=== PATIENT | male | born 1970 | race Caucasian/White ===

== ENCOUNTER 2024-11-01 05:54 | Inpatient (IN) | payer OTHER ==
[~2024-11-01] VITALS: Ht 190.5 cm; Wt 113.4 kg
[2024-11-01] MEDS: ONDANSETRON HCL INJ 2MG/ML 2ML 2 MG/ML VIAL IV ONE (06:34)
[2024-11-01] MEDS: LACTATED RINGER'S 1,000 ML INJ ONE (06:35)
[2024-11-01] MEDS: FAMOTIDINE 20 MG/2 ML VIAL IV ONE (06:37)
[2024-11-01] MEDS: KETOROLAC TROMETHAMINE 30 MG/ML VIAL IV STA (06:37)
[2024-11-01] MEDS: SODIUM CHLORIDE 0.9% 1000ML 1,000 ML IV STA ×2 (07:43→08:29)
[2024-11-01] MEDS: NICOTINE 14 MG/EA PATCH TOP SCH (08:15)
[2024-11-01] MEDS: CEFTRIAXONE 1 GM VIAL IV ONE (08:29)
[2024-11-01] MEDS: SODIUM CHLORIDE 0.9% 500ML 500 ML IV STA (08:30)
[2024-11-01] MEDS ORDERED: CEFTRIAXONE 1 GM VIAL ONE (08:35)
[2024-11-01] MEDS: KETOROLAC TROMETHAMINE 30 MG/ML VIAL IV PRN (12:42)
[2024-11-01] MEDS: ACETAMINOPHEN 325 MG TAB PO PRN (12:42)
[2024-11-01 16:34] VITALS: PULSE 90; RESP 18; TEMP 98.4
[2024-11-01] MEDS: FAMOTIDINE 20 MG TAB PO SCH (16:47)
[2024-11-01] MEDS: ONDANSETRON HCL INJ 2MG/ML 2ML 2 MG/ML VIAL IV PRN (16:47)
[2024-11-01] MEDS: Morphine 4mg INJECTION 4 MG/ML INJ IV PRN (16:48)
[2024-11-01] MEDS ORDERED: CLARITIN10 MG PO (18:01)
[2024-11-01] MEDS ORDERED: B12 ACTIVE1000 MCG PO (18:01)
[2024-11-01] MEDS ORDERED: BENADRYL25 M1 PO (18:01)
[2024-11-01 18:03] VITALS: BP_SYST 134; BP_SYST 144; BP_DIAS 84; BP_DIAS 87; PULSE 92; RESP 18; TEMP 98.2; O2SAT 100; O2SAT 95
[2024-11-01 20:00] VITALS: BP 126/90; PULSE 88; RESP 16; TEMP 97.7; O2SAT 100
[2024-11-01] MEDS ORDERED: ZOLPIDEM TARTRATE 10 MG TAB PO PRN (21:00)
[2024-11-02] VITALS (8 sets, daily range): BP systolic 117–135; BP diastolic 67–99; PULSE 90–101; RESP 18; TEMP 97.6–99; O2SAT 98–100
[2024-11-02 06:30] LABS: BASOPHILS # (AUTO) 0.1 (0.0-0.1); BASOPHILS % 0.9 % (0.0-1.0); EOSINOPHILS # (AUTO) 1.5 (0.0-0.4); EOSINOPHILS % 11.6 % (0.0-6.0); HEMATOCRIT 42.5 % (38.2-49.6); LYMPHOCYTES # (AUTO) 2.4 (1.0-3.2); LYMPHOCYTES % 18.6 % (18.0-39.1); MEAN CORPUSCULAR HEMOGLOBIN 33.3 pg (28-32); MEAN CORPUSCULAR HGB CONC 32.9 g/dL (31-35); MONOCYTES # (AUTO) 0.7 (0.2-0.8); MONOCYTES % 5.7 % (4.4-11.3); NEUTROPHILS # (AUTO) 8.1 (2.1-6.9); NEUTROPHILS % 62.6 % (38.7-80.0); PLATELET COUNT 197 x10e3/uL (140-360); RED BLOOD COUNT 4.21 x10e6/uL (4.3-5.7); RED CELL DISTRIBUTION WIDTH 13.9 % (11.7-14.4)
[2024-11-02 06:59] LABS: ANION GAP 12.3 mmol/L (8-16); CALCIUM 8.4 mg/dL (8.4-10.2); CREATININE, SERUM 1.24 mg/dL (0.72-1.25); POTASSIUM 4.3 mmol/L (3.5-5.1)
[2024-11-02] MEDS ORDERED: CEFTRIAXONE 1 GM VIAL IV SCH (09:00)
[2024-11-02] MEDS: CEFTRIAXONE 2 GM in SODIUM CHLORIDE 0.9% 100 ML IV SCH (09:21)
[2024-11-02] MEDS: LACTULOSE SYRUP 20 GM/30 ML UDC PO ONE (14:38)
[2024-11-02] MEDS: BISACODYL 5 MG TAB EC PO SCH (17:27)
[2024-11-03 01:46] VITALS: BP 126/83; PULSE 103; RESP 18; TEMP 97.9; O2SAT 100
[2024-11-03 05:14] VITALS: BP 128/80; PULSE 98; RESP 19; TEMP 97.7; O2SAT 98
[2024-11-03 06:04] LABS: BASOPHILS # (AUTO) 0.1 (0.0-0.1); BASOPHILS % 0.6 % (0.0-1.0); EOSINOPHILS # (AUTO) 1.3 (0.0-0.4); EOSINOPHILS % 9.5 % (0.0-6.0); HEMATOCRIT 40.9 % (38.2-49.6); HEMOGLOBIN 13.5 g/dL (14.0-18.0); LYMPHOCYTES # (AUTO) 2.1 (1.0-3.2); LYMPHOCYTES % 14.8 % (18.0-39.1); MONOCYTES # (AUTO) 0.9 (0.2-0.8); MONOCYTES % 6.3 % (4.4-11.3); NEUTROPHILS # (AUTO) 9.5 (2.1-6.9); NEUTROPHILS % 68.2 % (38.7-80.0); PLATELET COUNT 193 x10e3/uL (140-360); RED BLOOD COUNT 4.09 x10e6/uL (4.3-5.7); RED CELL DISTRIBUTION WIDTH 13.5 % (11.7-14.4); WHITE BLOOD COUNT 13.85 x10e3/uL (4.8-10.8)
[2024-11-03 06:35] LABS: CALCIUM 8.3 mg/dL (8.4-10.2); CHOL/HDL RATIO 5.8 (3.9-4.7); CREATININE, SERUM 0.88 mg/dL (0.72-1.25)
[2024-11-03 08:00] VITALS: BP 126/93; PULSE 111; RESP 18; TEMP 98.6; O2SAT 98
[2024-11-03 08:53] VITALS: BP 126/93; PULSE 111; RESP 18; TEMP 98.6; O2SAT 98
[2024-11-03] MEDS: DIPHENHYDRAMINE HCL INJ 50 MG/ML VIAL IV PRN (08:56)
[2024-11-03 12:00] VITALS: BP 127/84; PULSE 97; RESP 18; TEMP 98.1; O2SAT 98
[2024-11-03] MEDS ORDERED: HEPARIN SOD/DEXTROSE 5% 25000 UNIT/250 ML BAG IV SCH (12:30)
[2024-11-03] MEDS ORDERED: TRAMADOL HCL 50 MG TAB PO PRN (12:45)
[2024-11-03] MEDS ORDERED: IOPAMIDOL 370 MG/ML 100 ML INFUS..BTL INJ ONE (12:48)
[2024-11-03 13:44] LABS: INR 0.99
[2024-11-03] MEDS: HEPARIN SOD (PORCINE) 5,000 UNIT/ML VIAL IV ONE (14:14)
[2024-11-03] MEDS: HEPARIN 25,000 UNIT/D5W 250ML 250 ML IV SCH (14:16)
[2024-11-03 16:00] VITALS: BP 134/82; PULSE 101; RESP 19; TEMP 98.6; O2SAT 97
[2024-11-04 10:17] LABS: ALPHA FETO-PROTEIN 2.5 ng/mL (0.0-8.4)
== END 2024-11-03 19:33 | disposition short-term general hospital (02) | DRG 176 ==
LOC: FSED 05:58 → ERHOLD 08:05 → MED/SURG3 17:36
PROVIDERS: ADMIT Internal Medicine; ATTEND Internal Medicine
DX: I26.99 Other pulmonary embolism without acute cor pulmonale (principal); N12 Tubulo-interstitial nephritis, not specified as acute or chronic; I82.432 Acute embolism and thrombosis of left popliteal vein; I82.442 Acute embolism and thrombosis of left tibial vein; I82.412 Acute embolism and thrombosis of left femoral vein; I82.492 Acute embolism and thrombosis of other specified deep vein of left lower extremity; D64.9 Anemia, unspecified; R73.9 Hyperglycemia, unspecified; Z72.0 Tobacco use; Z86.718 Personal history of other venous thrombosis and embolism; Z82.3 Family history of stroke
CPT/HCPCS: 36415; 71260; 74176; 80048; 80061; 80076; 82105; 82378; 83036; 83605; 83735; 84152; 85025; 85610; 85730; 86301; 87040; 87086; 93306; 93971; 96374; 96375; 96376; 99284; J0696; J1200; J1308; J1644; J1885; J2270; J2405; J7030; J7040; J7050; Q9967